=== PATIENT | male | born 1965 | race Caucasian/White ===

== ENCOUNTER → 2017-10-26 07:48 | Outpatient (CLI) | payer OTHER, SELFPAY ==
[2017-10-26 08:47] LABS: Add Manual Diff / Slide Review NO; Basophils Percent Auto 0.5 % (0-2); Eosinophils Percent Auto 2.4 % (2-4); Hematocrit 47.8 % (41-53); Hemoglobin 17.1 g/dL (13.5-17.5); Lymphocytes Percent Auto 30.7 % (25-40); Mean Corpuscular HGB Conc 35.7 % (30-36); Mean Corpuscular Hemoglobin 32.1 PG (26-34); Neutrophils Absolute Auto 3900 /uL (3000-5900); Neutrophils Percent Auto 60.4 % (50-75); Platelet Count 181 X10^3/uL (150-400); Red Blood Cell Count 5.31 X10^6/uL (4.5-5.9); Red Cell Distribution Width 12.5 % (11.6-14.8); White Blood Cell Count 6.5 X10^3/uL (4.5-11.0)
[2017-10-26 09:08] LABS: Blood Urea Nitrogen 16 mg/dL (9-20); Calcium 9.2 mg/dL (8.4-10.2); Carbon Dioxide 28 mmol/L (22-32); Chloride 102 mmol/L (98-107); Cholesterol 206 mg/dL (140-199); Estimated Glomerular Filt Rate > 60.0 mL/min (>60); Glucose 98 mg/dL (70-100); HDL Cholesterol 44 mg/dL (40-60); HEMOLYSIS < 15 (0-50); LDL Cholesterol Calculated 116 mg/dL (<100); Potassium 4.4 mmol/L (3.4-5.1); Sodium 139 mmol/L (137-145); Triglycerides 232 mg/dL (35-150)
== END ==
PROVIDERS: Family Provider Family Medicine; PCP Family Medicine; Visit Provider Family Medicine
DX: E78.5 Hyperlipidemia, unspecified (principal); Z12.5 Encounter for screening for malignant neoplasm of prostate
CPT/HCPCS: 36415; 80048; 80061; 84153; 85025

== ENCOUNTER → 2017-12-07 14:00 | Outpatient (CLI) | payer OTHER, SELFPAY | PROVIDERS: Family Provider Family Medicine; PCP Family Medicine | DX: Z23 Encounter for immunization (principal) | CPT/HCPCS: 90471; 90686 ==

== ENCOUNTER → 2018-11-30 07:51 | Outpatient (CLI) | payer OTHER, SELFPAY ==
[2018-11-30 09:05] LABS: Add Manual Diff / Slide Review NO; Basophils Absolute Auto 0 /uL (0-100); Basophils Percent Auto 0.5 % (0-2); Eosinophils Absolute Auto 200 /uL (0-450); Eosinophils Percent Auto 2.9 % (2-4); Hematocrit 48.8 % (41-53); Hemoglobin 17.1 g/dL (13.5-17.5); Lymphocytes Absolute Auto 1700 /uL (1100-4500); Lymphocytes Percent Auto 26.9 % (25-40); Mean Corpuscular HGB Conc 34.9 % (30-36); Mean Corpuscular Hemoglobin 32.2 PG (26-34); Mean Corpuscular Volume 92.2 fL (80-100); Monocytes Absolute Auto 400 /uL (0-900); Monocytes Percent Auto 6.3 % (3-14); Neutrophils Absolute Auto 3900 /uL (1500-7000); Neutrophils Percent Auto 63.4 % (50-75); Platelet Count 183 X10^3/uL (150-400); Red Blood Cell Count 5.29 X10^6/uL (4.5-5.9); Red Cell Distribution Width 12.5 % (11.6-14.8); White Blood Cell Count 6.2 X10^3/uL (4.5-11.0)
[2018-11-30 09:24] LABS: Alanine Aminotransferase 26 IU/L (21-72); Albumin 4.4 g/dL (3.5-5.0); Albumin Globulin Ratio 1.6 (1.0-2.8); Alkaline Phosphatase 64 U/L (38-126); Aspartate Aminotransferase 29 IU/L (17-59); Blood Urea Nitrogen 18 mg/dL (9-20); Calcium 9.3 mg/dL (8.4-10.2); Carbon Dioxide 28 mmol/L (22-32); Chloride 102 mmol/L (98-107); Cholesterol 205 mg/dL (140-199); Estimated Glomerular Filt Rate > 60.0 mL/min (>60); Globulin 2.8 g/dL (1.7-4.1); Glucose 97 mg/dL (70-100); HDL Cholesterol 41 mg/dL (40-60); HEMOLYSIS < 15 (0-50); LDL Cholesterol Calculated 117 mg/dL (<100); Potassium 4.1 mmol/L (3.4-5.1); Sodium 140 mmol/L (137-145); Total Protein 7.2 g/dL (6.3-8.2); Triglycerides 237 mg/dL (35-150)
== END ==
PROVIDERS: PCP Hospitalist; Visit Provider Hospitalist
DX: E78.5 Hyperlipidemia, unspecified (principal)
CPT/HCPCS: 36415; 80053; 80061; 85025

== ENCOUNTER 2019-01-22 16:02 | Outpatient (RCR) | payer OTHER, SELFPAY ==
--- NOTE | 2019-01-22 17:30 | PT.OIE ---
Current Diagnoses Unspecified rotator cuff tear or rupture of unspecified shoulder, not specified as traumatic (01/22/19) Calcific tendinitis of unspecified shoulder (01/22/19) Past Medical History (Last Reviewed 11/22/18 @ 11:50 by Justyna Diana MD) Adenomatous colon polyp (Chronic Unknown) Adenomatous polyp of colon (Chronic 05/03/16) Chronic pain of left knee (Chronic Unknown) Fractures (Resolved Unknown) History of tear of meniscus of knee joint (Chronic 05/03/16) Hx of tear of meniscus of knee joint (Resolved Unknown) Hyperlipidemia (Chronic) Mid back pain (Chronic Unknown) Right ankle pain (Chronic 2016) Past Surgical History (Last Reviewed 11/22/18 @ 11:50 by Justyna Diana MD) S/P arthroscopy of left knee (Chronic) Status post knee surgery Visit Care Team Role Provider Type Justyna Diana MD Attending Provider Physician Primary Care Provider Specialty: Internal Medicine Address: [address] [place] [address] Email: Physical Therapy Initial Evaluation PT-OP-A Visit Information Start: 01/23/19 10:31 Freq: Status: Active Protocol: Document 01/22/19 16:45 DCW (Rec: 01/23/19 10:58 [facility] [id number]) Out-Patient Physical Therapy Visit Information Visit Information Visit Type Initial Evaluation Visit Start Time 16:45 Visit Stop Time 17:17 Total Visit Minutes 32 Visit Number 1 Number of RUG DYER HELPER Visits 0 Evaluation Information Evaluation Date 01/22/19 PT-OP-B Current Condition Start: 01/23/19 10:31 Freq: Status: Active Protocol: Document 01/22/19 16:45 DCW (Rec: 01/23/19 10:58 [facility] [id number]) Current Condition History of Current Condition Onset Date 8 months Current Complaints Shoulder soreness at end-range flexion/abduction History of Current Condition Pt is a 53 year old male presenting with an eight month history of right shoulder pain. Pt believes that it began after falling on his right side during soccer, but he is not sure. Pt reports that he has been strengthening it on his own, and overall is doing very well, but he has just hit a plateau where he can't seem to get it any better, and he wants to ensure that there is no underlying damage. Pt reports it only really ever bothers him when he is performing overhead activities like pull-ups, or when he sleeps on his side with his right arm up over his head. Prior Functional Status Baseline Function- ADL's Independent Baseline Function- Mobility Independent PT-OP-C Subjective Start: 01/23/19 10:31 Freq: Status: Active Protocol: Document 01/22/19 16:45 DCW (Rec: 01/23/19 10:58 DC[facility] [id number]) OP-PT Subjective Patient Comments Patient Comments I've been trying to strengthen it on my own, but it just doesn't seem to be getting better. Patient Reported Progress Same Patient Questionnaires Quick Dash- Upper Extremity Quick Dash UE Score 18.18% Quick Dash UE Impairment 1 to 19% Impaired (Score 1-19) OP-PT Pain Assessment Pain Assessment Grid Paper Pain Assessment Grid Completed Yes Location Right Lateral Shoulder Intensity 3 Scale Used Numeric (1 - 10) Description Aching PT-OP-F Manual Assessment Start: 01/23/19 10:31 Freq: Status: Active Protocol: Document 01/22/19 16:45 DCW (Rec: 01/23/19 10:58 DC[facility] [id number]) Manual Assessments Soft Tissue Assessment Soft Tissue Mobility Assessment Mild discomfort with palpation of the subacromial space Joint Mobility Assessment Joint Mobility Assessment WNL PT-OP-K Range of Motion Start: 01/23/19 10:31 Freq: Status: Active Protocol: Document 01/22/19 16:45 DCW (Rec: 01/23/19 10:58 DC[facility] [id number]) Shoulder Goniometric Range of Motion Shoulder Right Shoulder ROM WFL Yes Shoulder ROM Limitations Comments Pain with abduction and flexion >160? PT-OP-L Special Tests Start: 01/23/19 10:31 Freq: Status: Active Protocol: Document 01/22/19 16:45 DCW (Rec: 01/23/19 10:58 DC[facility] [id number]) Special Tests Shoulder Special Tests Sulcus Test Results Negative Passive ER Rotator Cuff Test Results Negative Lift-Off Rotator Cuff Test Results Negative Mckinney Calvin Impingement Test Results Positive R Grind Labrum Test Results Negative Empty Can Test Results Negative Drop Arm Rotator Cuff Test Results Negative Belly Press Test Results Negative AC Joint Compression Test Results Negative PT-OP-M Strength Start: 01/23/19 10:31 Freq: Status: Active Protocol: Document 01/22/19 16:45 DCW (Rec: 01/23/19 10:58 DCW [id number]) Shoulder Strength Shoulder Manual Muscle Testing Right Flexion 5 Normal Extension 5 Normal Abduction (C5) 5 Normal Adduction 5 Normal External Rotation 5 Normal Internal Rotation 5 Normal Horizontal Abduction 5 Normal Horizontal Adduction 5 Normal PT-OP-T Assessment and Plan Start: 01/23/19 10:31 Freq: Status: Active Protocol: Document 01/22/19 16:45 DCW (Rec: 01/23/19 10:58 [facility] [id number]) Physical Therapy Assessment Rehab Potential Rehabilitation Potential Excellent Evaluation Complexity Number of Personal Factors/Comorbidities 0 Number of Body Systems Impaired 1-2 Clinical Presentation at Evaluation Stable Impairments Impairments Pain Goals One Impairment Pain limits pt's sleep Snf Goal (LTG) Pt to report no inturruptions in sleep secondary to right shoulder pain LTG Duration 03/05/19 Assessment Summary Assessment Pt overall is doing very well. Nearly all special testing is negative, essentially ruling out a rotator cuff or labral tear. Pt demonstrated 5/5 shoulder strength in all directions, and showed completely WNL ROM. Pt's only positive test today was the Mckinney Calvin Impingement test, and mild discomfort with palpation of the subacromial space. Pt likely has inflammation in the subactomial space following his fall during soccer, and since then has continually irritated it by performing overhead activities, like his pull-ups, which are a part of his normal workout routine, and his sleep position, which involves lying on his right side with his right arm over head. As pt shows no other deficits, and has a great exercise program on his own, pt will likely not benefit from further skilled therapy, and was instructed to removem over-head activities from his workout routine and sleep position, while continuing to ensure he does not just keep his arm at his side and increase the risk of adhesive capsulitis. Patient and therapist agreed that his current appointments could be canceled, however his chart would be left open in case he had any questions, change in symptoms, set-backs, or did not show any progress, so that he could return for a follow- up appointment. Physical Therapy Plan Frequency and Duration Frequency of Treatment 1x/Week Duration of Treatment 6 weeks Plan of Care Start Date 01/22/19 Plan of Care End Date 03/05/19 Therapeutic Interventions Therapeutic Interventions Home Exercise Program,Joint Mobilizations,Manual Therapy, Patient/Caregiver Education, Self-Care/Home Management, Therapeutic Activities, Therapeutic Exercises Modalities Cold Pack/Ice Massage,Electric Stimulation,Hot Packs, Ultrasound Other Therapeutic Interventions Iontophoresis /c Dexamethasone , 4 mg/mL Next Visit Focus/Plan Next Note Type Treatment Note Next Visit Plan Assess pt progress
--- NOTE | 2019-03-28 10:03 | PT.OPDS ---
Current Diagnoses Unspecified rotator cuff tear or rupture of unspecified shoulder, not specified as traumatic (01/22/19) Calcific tendinitis of unspecified shoulder (01/22/19) Visit Care Team Role Provider Type Justyna Diana MD Attending Provider Non-Staff Primary Care Provider Specialty: Internal Medicine Address: [address] [place] [address], [phone] Email: Visit Number Visit Number 1 Discharge Summary PT-OP-B Current Condition Start: 01/23/19 10:31 Freq: Status: Active Protocol: Document 01/22/19 16:45 DCW (Rec: 01/23/19 10:58 [facility] [id number]) Current Condition History of Current Condition Onset Date 8 months Current Complaints Shoulder soreness at end-range flexion/abduction History of Current Condition Pt is a 53 year old male presenting with an eight month history of right shoulder pain. Pt believes that it began after falling on his right side during soccer, but he is not sure. Pt reports that he has been strengthening it on his own, and overall is doing very well, but he has just hit a plateau where he can't seem to get it any better, and he wants to ensure that there is no underlying damage. Pt reports it only really ever bothers him when he is performing overhead activities like pull-ups, or when he sleeps on his side with his right arm up over his head. Prior Functional Status Baseline Function- ADL's Independent Baseline Function- Mobility Independent PT-OP-C Subjective Start: 01/23/19 10:31 Freq: Status: Active Protocol: Document 01/22/19 16:45 DCW (Rec: 01/23/19 10:58 [facility] [id number]) OP-PT Subjective Patient Comments Patient Comments I've been trying to strengthen it on my own, but it just doesn't seem to be getting better. Patient Reported Progress Same Patient Questionnaires Quick Dash- Upper Extremity Quick Dash UE Score 18.18% Quick Dash UE Impairment 1 to 19% Impaired (Score 1-19) OP-PT Pain Assessment Pain Assessment Grid Paper Pain Assessment Grid Completed Yes Location Right Lateral Shoulder Intensity 3 Scale Used Numeric (1 - 10) Description Aching PT-OP-F Manual Assessment Start: 01/23/19 10:31 Freq: Status: Active Protocol: Document 01/22/19 16:45 DCW (Rec: 01/23/19 10:58 DC[facility] [id number]) Manual Assessments Soft Tissue Assessment Soft Tissue Mobility Assessment Mild discomfort with palpation of the subacromial space Joint Mobility Assessment Joint Mobility Assessment WNL PT-OP-K Range of Motion Start: 01/23/19 10:31 Freq: Status: Active Protocol: Document 01/22/19 16:45 DCW (Rec: 01/23/19 10:58 [facility] [id number]) Shoulder Goniometric Range of Motion Shoulder Right Shoulder ROM WFL Yes Shoulder ROM Limitations Comments Pain with abduction and flexion >160? PT-OP-L Special Tests Start: 01/23/19 10:31 Freq: Status: Active Protocol: Document 01/22/19 16:45 DCW (Rec: 01/23/19 10:58 DCW [id number]) Special Tests Shoulder Special Tests Sulcus Test Results Negative Passive ER Rotator Cuff Test Results Negative Lift-Off Rotator Cuff Test Results Negative Mckinney Calvin Impingement Test Results Positive R Grind Labrum Test Results Negative Empty Can Test Results Negative Drop Arm Rotator Cuff Test Results Negative Belly Press Test Results Negative AC Joint Compression Test Results Negative PT-OP-M Strength Start: 01/23/19 10:31 Freq: Status: Active Protocol: Document 01/22/19 16:45 DCW (Rec: 01/23/19 10:58 DCW [id number]) Shoulder Strength Shoulder Manual Muscle Testing Right Flexion 5 Normal Extension 5 Normal Abduction (C5) 5 Normal Adduction 5 Normal External Rotation 5 Normal Internal Rotation 5 Normal Horizontal Abduction 5 Normal Horizontal Adduction 5 Normal PT-OP-T Assessment and Plan Start: 01/23/19 10:31 Freq: Status: Active Protocol: Document 03/28/19 10:01 DCW (Rec: 03/28/19 10:03 DCW [id number]) Physical Therapy Assessment Goals One Impairment Pain limits pt's sleep Bonderite Operator Goal (LTG) Pt to report no interruptions in sleep secondary to right shoulder pain LTG Duration 03/05/19 Assessment Summary Assessment Pt was phoned on 03/06/19 to ask for update on condition. Message was left with his requesting a return phone call. Pt has not called back, and has now not been seen in more than two months. Pt will be discharged at this time. Physical Therapy Plan Discharge Physical Therapy Discharge Reasons No Longer Attending PT Next Visit Focus/Plan Next Note Type Discharge Summary
== END 2019-03-29 12:59 ==
LOC: PHYS 16:02
PROVIDERS: PCP Hospitalist; Visit Provider Hospitalist
DX: M75.100 Unspecified rotator cuff tear or rupture of unspecified shoulder, not specified as traumatic (principal); M75.30 Calcific tendinitis of unspecified shoulder
CPT/HCPCS: 97161

== ENCOUNTER 2019-03-19 08:55 | Day surgery (SDC) | payer OTHER, SELFPAY ==
[2019-03-19 09:27] VITALS: BMI 24.2
[2019-03-19 09:30] VITALS: BP 120/78; PULSE 70; RESP 15; TEMP 36.2; O2SAT 100
[2019-03-19] MEDS: SODIUM CHLORIDE 0.9% 1,000 ML 200 ML IV (09:38)
--- NOTE | 2019-03-19 10:20 | PM.HP.1 ---
History of Present Illness History of Present Illness Date Patient Seen: 03/19/19 Time Patient Seen: 10:20 Chief complaint: [id number] Narrative: Patient presents for colorectal screening. He had a previous colonoscopy 5 years ago that demonstrated adenomatous polyps which were removed. No personal or family history of colon cancer. On further history denies any recent gastrointestinal symptoms. No nausea, vomiting, abdominal pain, loss of appetite, unexplained weight loss, change in bowel habits, diarrhea, constipation, melena, hematochezia, or bright red blood per rectum. Patient History Medical History Adenomatous colon polyp (Chronic Unknown) Adenomatous polyp of colon (Chronic 05/03/16) Chronic pain of left knee (Chronic Unknown) Fractures (Resolved Unknown) History of tear of meniscus of knee joint (Chronic 05/03/16) Hx of tear of meniscus of knee joint (Resolved Unknown) Hyperlipidemia (Chronic) Mid back pain (Chronic Unknown) Right ankle pain (Chronic 2016) Surgical History S/P arthroscopy of left knee (Chronic) Status post knee surgery Family & Social History Family History Mother Cancer Father No problems noted. Social History: household members spouse,children lives independently Yes Tobacco & Substance use: Smoking Status Never smoker alcohol intake current Meds Home Medications and Allergies Home Medications Medication Instructions Recorded Confirmed Type No Known Home Medications 07/29/17 03/19/19 History Allergies Allergy/AdvReac Type Severity Reaction Status Date / Time No Known Drug Allergies Allergy Verified 03/19/19 09:23 Review of Systems Review of Systems Narrative: A 10 point review of systems is negative except as noted in the HPI Exam Vital Signs (past 8 hours): - 03/19/19 09:30 Temperature 97.2 F L Pulse Rate 70 Respiratory Rate 15 Blood Pressure 120/78 Pulse Oximetry 100 Oxygen Delivery Method Room Air Narrative Exam Narrative: General-no acute distress, well nourished HEENT-moist mucous membranes, no scleral icterus Neck-supple, no lymphadenopathy Chest- non labored respirations, clear to auscultation bilaterally Cardiac-regular rate no peripheral edema Abdomen-soft, nontender, non distended Extremities-warm, well perfused Neurological-alert and oriented, no focal deficits Assessment & Plan Assessment and plan (1) Screening for colon cancer: Current visit: Yes Status: Acute Assessment & Plan narrative: The patient requires colorectal screening and colonoscopy is recommended. Technical details were discussed. Risks, benefits, alternatives explained. Risks including but not limited to myocardial infarction, aspiration, bleeding, pain, missed lesion, incomplete examination, need for further radiographic studies, colonic perforation, and need for major abdominal surgery were discussed. All questions were answered to their satisfaction, and they are in agreement with this plan.
[2019-03-19] MEDS: fentaNYL 250 MCG/5 ML INJ IV (10:58)
[2019-03-19] MEDS: MIDAZOLAM 5 MG/5 ML VIAL IV (10:59)
--- NOTE | 2019-03-19 10:59 | PM.OP.ENDO ---
Operative Date/Time/Diagnoses Date of procedure: 03/19/19 Time of procedure: 10:59 Pre-op diagnosis: Screening colonoscopy Post-op diagnosis: same Procedure & Clinicians Study performed: Colonoscopy Same procedure as scheduled: Yes Indications: 53-year-old male previous colonoscopy 5 years ago demonstrated several adenomatous polyps presents for screening. Surgeon: Nam Molina Procedure Notes SCOAP/Timeout: Performed Procedure in detail: Patient placed in left lateral decubitus position. Time out was performed. Procedural sedation was administered with Versed and Fentanyl. A rectal exam demonstrated no external hemorrhoids no internal masses. Colonoscopy scope was placed into the rectum and advanced through the colon to the cecum. The ileocecal valve was identified. The scope was then slowly withdrawn examining colon thoroughly in all directions. The colonoscopy was notable for the following 1. Grade 1 internal hemorrhoids 2. Quality of prep excellent 3. No masses polyps Scope withdrawal time: 6 Sedation minutes: 23 Findings: internal hemorrhoids Specimen(s): none sent Complications: none Impression: Normal colonoscopy Post-procedure Recommendations: Colonscopy in 10 years Disposition: same day surgery
[2019-03-19 11:02] VITALS: BP 114/77; PULSE 63; RESP 13; TEMP 36; O2SAT 96
[2019-03-19 11:07] VITALS: BP 102/64; PULSE 55; RESP 20; O2SAT 95
[2019-03-19 11:12] VITALS: BP 133/90; PULSE 78; RESP 15; O2SAT 95
[2019-03-19 11:17] VITALS: BP 122/85; PULSE 73; RESP 11; TEMP 36; O2SAT 95
[2019-03-19 11:30] VITALS: BP 118/66; PULSE 71; RESP 16; TEMP 36.6; O2SAT 97
--- NOTE | 2019-03-19 11:46 | SUR.PHASEII ---
called when pt ready, dressed and pt left in stable condition with all belongings.
== END 2019-03-19 11:35 | disposition home or self-care (01) ==
PROVIDERS: PCP Hospitalist; Visit Provider Surgery
PROC: 0DJD8ZZ Inspection of Lower Intestinal Tract, Via Natural or Artificial Opening Endoscopic (ICD-10-PCS; CPT 45378; principal; 2019-03-19 10:00)
DX: Z12.11 Encounter for screening for malignant neoplasm of colon (principal); Z86.010 Personal history of colon polyps; K64.0 First degree hemorrhoids
CPT/HCPCS: 45378; 99152; J2250; J3010

== ENCOUNTER → 2019-04-19 16:18 | Outpatient (CLI) | payer OTHER, SELFPAY ==
--- NOTE | 2019-04-19 16:20 | DI.RAD.S_ITS ---
PROCEDURE: XR SHOULDER RT MIN 2V INDICATIONS: right shoulder pain TECHNIQUE: 3 views of the shoulder were acquired. COMPARISON: None. FINDINGS: Bones: No fractures or dislocations. No suspicious bony lesions. There is mild acromioclavicular and glenohumeral joint degeneration. Visualized ribs appear intact. Soft tissues: No suspicious soft tissue calcifications. IMPRESSION: Mild degenerative joint disease. Dictated by: Kasey Pathak M.D. on 04/20/2019 at 10:37 Approved by: Kasey Pathak M.D. on 04/20/2019 at 10:39
== END ==
PROVIDERS: PCP Internal Medicine; Referring Provider Nurse Practitioner Family; Visit Provider Nurse Practitioner Family
DX: M25.511 Pain in right shoulder (principal); M19.011 Primary osteoarthritis, right shoulder
CPT/HCPCS: 73030

== ENCOUNTER → 2020-06-06 17:16 | Outpatient (CLI) | payer OTHER, SELFPAY ==
[2020-06-06] MEDS: COVID-19 VACC #1, MRNA(MOD) 100 MCG/0.5 ML VIAL IM (17:26)
== END ==
PROVIDERS: PCP Internal Medicine; Referring Provider Internal Medicine; Visit Provider Internal Medicine
DX: Z23 Encounter for immunization (principal)
CPT/HCPCS: 0011A; 91301

== ENCOUNTER → 2020-07-02 14:14 | Outpatient (CLI) | payer OTHER, SELFPAY ==
[2020-07-02] MEDS: COVID-19 VACC #2, MRNA(MOD) 100 MCG/0.5 ML VIAL IM (14:16)
== END ==
PROVIDERS: PCP Internal Medicine; Visit Provider Internal Medicine
DX: Z23 Encounter for immunization (principal)
CPT/HCPCS: 0012A; 91301